=== PATIENT | female | born 1950 | race Caucasian/White ===

== ENCOUNTER 2021-04-05 07:01 | Emergency (ER) | payer MEDICARE ==
[~2021-04-05] VITALS: Ht 167.6 cm; Wt 84.1 kg
[2021-04-05] MEDS ORDERED: SODIUM CHLORIDE FLUSH 10ML SYR IVF ONE (07:30)
--- NOTE | 2021-04-05 07:46 | NUR ---
PT. HAS C/O LOWER ABD. PAIN SINCE LAST NIGHT AFTER EATING. PT. STATES SHE IS UNABLE TO PASS GAS. PT. STATES SHE IS PASSING BRIGHT RED BLOOD IN HER STOOL. PT POSTIONED TO COMFORT. MICHELLEN. ATTACHED TO MONITORS. VSS. ZEINA SALCEDO EVALUATED AT BEDSIDE.
[2021-04-05 08:00] LABS: BASOPHILS % (AUTO) 1 % (0-1); EOSINOPHILS % (AUTO) 0 % (1-7); LYMPHOCYTES % (AUTO) 12 % (22-44); MEAN CORPUSCULAR HEMOGLOBIN 32.1 pg (27.0-34.8); MEAN CORPUSCULAR HGB CONC 34.1 g/dL (32.4-35.8); MEAN PLATELET VOLUME 8.2 fL (7.4-10.4); MONOCYTES % (AUTO) 7 % (2-9); NEUTROPHILS % (AUTO) 81 % (42-75); PLATELET COUNT 318 x10^3/uL (130-400); RED BLOOD COUNT 4.63 x10^6/uL (3.82-5.3); RED CELL DISTRIBUTION WIDTH 13.6 % (9.6-15.2)
[2021-04-05 08:01] LABS: MD NO
[2021-04-05 08:27] LABS: ALANINE AMINOTRANSFERASE 31 U/L (12-78); ALBUMIN 3.9 g/dL (3.4-5.0); ANION GAP 9 mmol/L (5-15); CALCIUM 8.9 mg/dL (8.5-10.1); CHLORIDE 108 mmol/L (98-107); CREATININE 0.86 mg/dL (0.55-1.02)
[2021-04-05 08:30] LABS: ALKALINE PHOSPHATASE 89 U/L (45-117); BILIRUBIN,TOTAL 0.9 mg/dL (0.2-1.0); TOTAL PROTEIN 7.1 g/dL (6.4-8.2)
--- NOTE | 2021-04-05 08:47 | NUR ---
pt with steady gait to bathroom. vss. lynne.
[2021-04-05] MEDS ORDERED: OMNIPAQUE 350 MG/ML, 100ML BOTTLE ONE (09:15)
--- NOTE | 2021-04-05 09:20 | NUR ---
PT TO CT.
[2021-04-05] MEDS ORDERED: AMPICILLIN/SULBACTAM 3 GM in SODIUM CHLORIDE 0.9% 100 ML IV ONE (10:30)
[2021-04-05] MEDS ORDERED: METRONIDAZOLE PMX 500MG/100ML 100 ML IV ONE (10:30)
[2021-04-05] MEDS ORDERED: METRONIDAZOLE PMX 500MG/100ML 100 ML ONE (10:31)
--- NOTE | 2021-04-05 10:40 | NUR ---
PT MEDICDATED PER EMAR. VSS. NADN.
[2021-04-05] MEDS ORDERED: PLEASE ENTER ALLERGIES MC SCH (11:00)
[2021-04-05 11:30] VITALS: BP 140/65
--- NOTE | 2021-04-05 12:04 | NUR ---
Patient given discharge instructions and they have confirmed that they understand the instructions. Patient ambulatory with steady gait. NAD, all questions answered appropriately, denies additional needs at this time. No personal belongings left in room after discharge.
== END 2021-04-05 12:05 | disposition home or self-care (01) ==
LOC: ED 08:43
DX: K51.90 Ulcerative colitis, unspecified, without complications (principal); R10.32 Left lower quadrant pain; R19.7 Diarrhea, unspecified; I10 Essential (primary) hypertension
CPT/HCPCS: 36415; 74177; 80053; 83880; 85025; 86850; 86900; 96365; 96367; 99285; J0295; Q9967